=== PATIENT | male | born 1935 ===

== ENCOUNTER 2021-06-13 17:57 | Inpatient (IN) | payer MEDICARE ==
[~2021-06-13] VITALS: Ht 185.4 cm; Wt 100.5 kg
[2021-06-13] MEDS ORDERED: DexAMETHasone SOD PHOS 10MG/1ML VIAL INJ IV ONE (22:00)
[2021-06-13] MEDS ORDERED: AZITHROMYCIN 500MG/ 250ML 250 ML IV ONE (22:00)
[2021-06-13 22:22] LABS: Basophils # (auto) 0 10 ^3/uL (0-0.2); Basophils % (auto) 0.2 % (0.0-2.0); Eosinophils # (auto) 0 10 ^3/uL (0-0.8); Eosinophils % (auto) 0.2 % (0.0-7.0); Hematocrit 34.2 % (41.0-53.0); Hemoglobin 11.5 g/dL (13.5-17.5); Lymphocytes # (auto) 0.6 10 ^3/uL (0.4-5.4); Lymphocytes % (auto) 10.4 % (10.0-50.0); Mean Corpuscular Hemoglobin 27.7 pg (28.0-32.0); Mean Corpuscular Hgb Conc. 33.5 g/dL (32.0-36.0); Mean Corpuscular Volume 82.5 fL (80.0-100.0); Monocytes # (auto) 0.4 10 ^3/uL (0-1.3); Monocytes % (auto) 6.8 % (0.0-12.0); Neutrophils # (auto) 4.5 10 ^3/uL (1.6-8.6); Neutrophils % (auto) 82.4 % (37.0-80.0); Nucleated Red Blood Cells % 0.1 %; Red Blood Cells 4.15 10^6/uL (4.5-5.90); Red Cell Distribution Width 16.3 % (11.8-14.3); White Blood Cell 5.4 10^3/uL (4.4-10.8)
[2021-06-13 22:39] LABS: INR 1.17 (0.9-1.15)
[2021-06-13 22:42] LABS: Albumin 2.7 g/dL (3.4-5.0); Calcium 7.8 mg/dL (8.5-10.1); Magnesium 1.8 mg/dL (1.6-2.6)
[2021-06-13 22:46] LABS: Bilirubin, Total 2.1 mg/dL (0.2-1.0); Total Protein 6.8 g/dL (6.4-8.2)
[2021-06-13] MEDS ORDERED: NITROGLYCERIN 0.4 MG SL TAB SL PRN (23:00)
[2021-06-13] MEDS ORDERED: ACETAMINOPHEN 500 MG TAB PO PRN (23:00)
[2021-06-13] MEDS ORDERED: cefTRIAXone 1GM/50ML D5W 50 ML IV ONE (23:00)
[2021-06-13] MEDS ORDERED: MORPHINE SULFATE INJECTION 2 MG/ML SYRG IV PRN (23:00)
[2021-06-13] MEDS ORDERED: ONDANSETRON HCL 4 MG/2 ML VIAL IV PRN (23:00)
[2021-06-14 03:23] VITALS: BP 132/57
[2021-06-14 06:54] LABS: Basophils # (auto) 0 10 ^3/uL (0-0.2); Basophils % (auto) 0.1 % (0.0-2.0); Eosinophils # (auto) 0 10 ^3/uL (0-0.8); Eosinophils % (auto) 0.1 % (0.0-7.0); Hematocrit 34.8 % (41.0-53.0); Hemoglobin 11.6 g/dL (13.5-17.5); Lymphocytes # (auto) 0.4 10 ^3/uL (0.4-5.4); Lymphocytes % (auto) 8.9 % (10.0-50.0); Mean Corpuscular Hemoglobin 27.9 pg (28.0-32.0); Mean Corpuscular Hgb Conc. 33.4 g/dL (32.0-36.0); Mean Corpuscular Volume 83.6 fL (80.0-100.0); Monocytes # (auto) 0.3 10 ^3/uL (0-1.3); Monocytes % (auto) 5.2 % (0.0-12.0); Neutrophils # (auto) 4.2 10 ^3/uL (1.6-8.6); Neutrophils % (auto) 85.7 % (37.0-80.0); Nucleated Red Blood Cells % 0.1 %; Red Blood Cells 4.17 10^6/uL (4.5-5.90); Red Cell Distribution Width 16.1 % (11.8-14.3); White Blood Cell 4.9 10^3/uL (4.4-10.8)
[2021-06-14 07:12] LABS: Albumin 2.8 g/dL (3.4-5.0); BUN/Creatinine Ratio 17.1; Potassium 4.6 mmol/L (3.5-5.1)
[2021-06-14 07:17] LABS: Bilirubin, Total 1.7 mg/dL (0.2-1.0); Total Protein 6.2 g/dL (6.4-8.2)
[2021-06-14] MEDS: ALBUTEROL SULF HFA 90MCG INH 200DOSE IN PRN (08:04)
[2021-06-14 09:00] VITALS: BP 132/80
[2021-06-14 09:04] VITALS: BP 132/80
[2021-06-14] MEDS ORDERED: PANTOPRAZOLE 40 MG TAB PO SCH (10:00)
[2021-06-14] MEDS: CHOLECALCIFEROL (VITD3) 2,000 UNIT CAP/TAB PO SCH (11:02)
[2021-06-14] MEDS: amLODIPine BESYLATE 5 MG TAB PO SCH (11:02)
[2021-06-14] MEDS: ZINC SULFATE 220mg CAP or TAB PO SCH (11:03)
[2021-06-14] MEDS: ENOXAPARIN SOD 40 MG/0.4 ML SYRINGE SC SCH (11:03)
[2021-06-14] MEDS: FUROSEMIDE 40 MG TAB PO SCH (11:03)
[2021-06-14] MEDS: LEVOTHYROXINE SODIUM 50 MCG TAB PO SCH (11:03)
[2021-06-14] MEDS: ASCORBIC ACID 1,000 MG TAB PO SCH (11:03)
[2021-06-14] MEDS ORDERED: REMDESIVIR PER PHARMACY 0 ML IV SCH (11:30)
[2021-06-14 12:00] VITALS: BP 142/75
[2021-06-14] MEDS ORDERED: REMDESIVIR 200 MG in NS 210ml LOADING DOSE ADULT IV ONE (15:00)
[2021-06-14] MEDS ORDERED: guaiFENesin-DM 100/10mg/5ml SYR PO PRN (16:15)
[2021-06-14] MEDS: TAMSULOSIN HYDROCHLORIDE 0.4 MG CAP PO SCH (18:26)
[2021-06-14] MEDS: cefTRIAXone 1GM/50ML D5W 50 ML IV SCH (20:58)
[2021-06-14] MEDS: DexAMETHasone SOD PHOS 10MG/1ML VIAL INJ IV SCH (21:13)
[2021-06-14] MEDS: ATORVASTATIN 20 MG TAB PO SCH (21:14)
[2021-06-14] MEDS: AZITHROMYCIN 500MG/ 250ML 250 ML IV SCH (21:42)
[2021-06-15] MEDS: ALBUTEROL SULF HFA 90MCG INH 200DOSE IN PRN (01:32)
[2021-06-15 05:00] VITALS: BP 134/68
[2021-06-15] MEDS: LEVOTHYROXINE SODIUM 50 MCG TAB PO SCH (06:00)
[2021-06-15 07:56] LABS: Potassium 4.5 mmol/L (3.5-5.1)
[2021-06-15 08:08] LABS: Albumin 2.6 g/dL (3.4-5.0); BUN/Creatinine Ratio 24.8; Bilirubin, Total 0.9 mg/dL (0.2-1.0); Calcium 8.4 mg/dL (8.5-10.1); Total Protein 6.2 g/dL (6.4-8.2)
[2021-06-15 09:00] VITALS: BP 144/78
[2021-06-15] MEDS: ZINC SULFATE 220mg CAP or TAB PO SCH (09:25)
[2021-06-15] MEDS: amLODIPine BESYLATE 5 MG TAB PO SCH (09:26)
[2021-06-15] MEDS: FUROSEMIDE 40 MG TAB PO SCH (09:26)
[2021-06-15] MEDS: ASCORBIC ACID 1,000 MG TAB PO SCH (09:26)
[2021-06-15] MEDS: ENOXAPARIN SOD 40 MG/0.4 ML SYRINGE SC SCH (09:27)
[2021-06-15] MEDS: CHOLECALCIFEROL (VITD3) 2,000 UNIT CAP/TAB PO SCH (09:27)
[2021-06-15 13:00] VITALS: BP 143/81
[2021-06-15] MEDS: REMDESIVIR 100mg 100 MG in SODIUM CHL 0.9% 230 ML IV SCH (15:00)
[2021-06-15] MEDS ORDERED: CETI-120 PO (16:36)
[2021-06-15] MEDS ORDERED: FENO50CA2 PO (16:36)
[2021-06-15] MEDS ORDERED: GLIP-218 PO (16:36)
[2021-06-15] MEDS ORDERED: REPA1TAB5 PO (16:36)
[2021-06-15] MEDS ORDERED: FOLI1TAB6 PO (16:36)
[2021-06-15] MEDS ORDERED: SILD20TA2 PO (16:36)
[2021-06-15] MEDS ORDERED: APIX2.5T PO (16:36)
[2021-06-15] MEDS ORDERED: AMLO-496 PO (16:36)
[2021-06-15] MEDS ORDERED: LEV50T PO (16:36)
[2021-06-15] MEDS ORDERED: SITA50TA PO (16:36)
[2021-06-15] MEDS ORDERED: LOSA-39 PO (16:36)
[2021-06-15] MEDS ORDERED: LOVA40TA72 PO (16:36)
[2021-06-15] MEDS ORDERED: METO1TAB9 PO (16:36)
[2021-06-15] MEDS ORDERED: DICL1GEL50 TOP (16:36)
[2021-06-15] MEDS ORDERED: ALLO300T2 PO (16:36)
[2021-06-15] MEDS ORDERED: TAMS0.4C36 PO (16:36)
[2021-06-15] MEDS ORDERED: GABA-339 PO (16:36)
[2021-06-15] MEDS ORDERED: ALEN70TA74 PO (16:36)
[2021-06-15] MEDS ORDERED: FURO40TA4 PO (16:36)
[2021-06-15 17:00] VITALS: BP 132/65
[2021-06-15] MEDS: TAMSULOSIN HYDROCHLORIDE 0.4 MG CAP PO SCH (17:43)
[2021-06-15] MEDS: DexAMETHasone SOD PHOS 10MG/1ML VIAL INJ IV SCH (21:09)
[2021-06-15] MEDS: ATORVASTATIN 20 MG TAB PO SCH (21:09)
[2021-06-15] MEDS: cefTRIAXone 1GM/50ML D5W 50 ML IV SCH (21:09)
[2021-06-15] MEDS: AZITHROMYCIN 500MG/ 250ML 250 ML IV SCH (22:22)
[2021-06-15 22:25] VITALS: BP 129/67
[2021-06-16] MEDS: ALBUTEROL SULF HFA 90MCG INH 200DOSE IN PRN ×2 (00:43→06:06)
[2021-06-16] MEDS: LEVOTHYROXINE SODIUM 50 MCG TAB PO SCH (06:20)
[2021-06-16] MEDS ORDERED: ASCO10003 PO (08:50)
[2021-06-16] MEDS ORDERED: ZINC220T6 PO (08:50)
[2021-06-16] MEDS ORDERED: AZIT500T66 PO (08:50)
[2021-06-16] MEDS ORDERED: CHOL1CAP47 PO (08:50)
[2021-06-16 09:00] VITALS: BP 152/80
[2021-06-16] MEDS: ENOXAPARIN SOD 40 MG/0.4 ML SYRINGE SC SCH (10:00)
[2021-06-16] MEDS: FUROSEMIDE 40 MG TAB PO SCH (10:45)
[2021-06-16] MEDS: ZINC SULFATE 220mg CAP or TAB PO SCH (10:46)
[2021-06-16] MEDS: CHOLECALCIFEROL (VITD3) 2,000 UNIT CAP/TAB PO SCH (10:47)
[2021-06-16] MEDS: amLODIPine BESYLATE 5 MG TAB PO SCH (10:47)
[2021-06-16] MEDS: ASCORBIC ACID 1,000 MG TAB PO SCH (10:47)
[2021-06-16 13:00] VITALS: BP 143/83
[2021-06-16] MEDS: REMDESIVIR 100mg 100 MG in SODIUM CHL 0.9% 230 ML IV SCH (13:30)
[2021-06-16 14:30] VITALS: BP 152/80
== END 2021-06-16 16:30 | disposition home or self-care (01) | DRG 177 ==
LOC: EDBD 17:57 → ER 17:57 → TELE 22:47 → TELE-EAST 06-14 09:26
PROVIDERS: ADMIT Nurse Practitioner; ATTEND Internal Medicine
PROC: XW033E5 Introduction of Remdesivir Anti-infective into Peripheral Vein, Percutaneous Approach, New Technology Group 5 (ICD-10-PCS; principal; 2021-06-14)
PROC: 05H933Z Insertion of Infusion Device into Right Brachial Vein, Percutaneous Approach (ICD-10-PCS; 2021-06-14)
PROC: B54MZZA Ultrasonography of Right Upper Extremity Veins, Guidance (ICD-10-PCS; 2021-06-14)
DX: U07.1 COVID-19 (principal); J12.82 Pneumonia due to coronavirus disease 2019; J96.01 Acute respiratory failure with hypoxia; N17.0 Acute kidney failure with tubular necrosis; J44.0 Chronic obstructive pulmonary disease with (acute) lower respiratory infection; E11.9 Type 2 diabetes mellitus without complications; E03.9 Hypothyroidism, unspecified; E78.5 Hyperlipidemia, unspecified; G89.29 Other chronic pain; I11.0 Hypertensive heart disease with heart failure; I25.10 Atherosclerotic heart disease of native coronary artery without angina pectoris; M10.9 Gout, unspecified; I50.9 Heart failure, unspecified; N40.0 Benign prostatic hyperplasia without lower urinary tract symptoms; Z95.1 Presence of aortocoronary bypass graft
CPT/HCPCS: 36415; 36600; 70450; 71045; 80053; 82728; 82805; 83605; 83615; 83735; 84484; 85025; 85379; 85610; 86141; 87040; 87426; 93005; 94640; 96365; 96366; 96367; G0378; J0696; J1100